=== PATIENT | female | born 1955 | race Two or more races ===

== ENCOUNTER 2022-12-26 18:45 | Emergency (ER) | payer OTHER ==
[~2022-12-26] VITALS: Ht 162.6 cm; Wt 90.7 kg
[2022-12-26] MEDS ORDERED: LISINOPRIL5 MG PO (19:05)
== END 2022-12-26 22:03 | disposition home or self-care (01) ==
LOC: ER 18:45
DX: S82.141A Displaced bicondylar fracture of right tibia, initial encounter for closed fracture (principal); W17.89XA Other fall from one level to another, initial encounter; Y93.H2 Activity, gardening and landscaping; Y92.017 Garden or yard in single-family (private) house as the place of occurrence of the external cause

== ENCOUNTER 2022-12-30 12:09 | Emergency (ER) | payer OTHER ==
[~2022-12-30] VITALS: Ht 165.1 cm; Wt 77.1 kg
[~2022-12-30 12:09] MED LIST: LISINOPRIL5 MG PO
[2022-12-30] MEDS ORDERED: NORFLEX100MG PO (13:23)
[2022-12-30] MEDS ORDERED: KETO10TA2 PO (13:23)
== END 2022-12-30 13:43 | disposition home or self-care (01) ==
LOC: ER 12:09
DX: M79.661 Pain in right lower leg (principal)